=== PATIENT | female | born 1990 | race Caucasian/White ===

== ENCOUNTER 2019-05-09 16:48 | Emergency (ER) | payer MEDICAID ==
[~2019-05-09] VITALS: Ht 162.6 cm; Wt 77.1 kg
[2019-05-09 17:07] VITALS: Ht 162.6 cm; Wt 77.1 kg
[2019-05-09 20:15] VITALS: BP 132/82
== END 2019-05-09 20:15 | disposition home or self-care (01) ==
LOC: ED 16:48
DX: S80.851A Superficial foreign body, right lower leg, initial encounter (principal); S81.841A Puncture wound with foreign body, right lower leg, initial encounter; W33.01XA Accidental discharge of shotgun, initial encounter; Y93.89 Activity, other specified; Y92.89 Other specified places as the place of occurrence of the external cause; Y99.8 Other external cause status